=== PATIENT | male | born 1965 | race Caucasian/White ===

== ENCOUNTER 2022-12-06 09:00 | Emergency (ER) | payer BC ==
[2022-12-06] VITALS (8 sets, daily range): BP systolic 89–141; BP diastolic 71–103
[~2022-12-06] VITALS: Ht 193 cm; Wt 97.0 kg
[2022-12-06 09:47] LABS: BASO% 0.8 % (0-3); HEMATOCRIT 49.1 % (39.0-50.0); HEMOGLOBIN 16.2 g/dl (14.0-18.0); IMMATURE GRANULOCYTES 0.2 % (0.0-5.0); LYMPH% 29.2 % (15-41); MEAN CELL VOLUME 91.4 fL CALC (80.0-100.0); MEAN CORPUSCULAR HGB 30.2 pG CALC (26.0-32.0); MONO% 7.2 % (2-13); NEUT# 5.94 thou/uL (1.82-7.42); NEUT% 61.6 % (42-76); RED BLOOD COUNT 5.37 mill/uL (4.70-6.10); RED CELL DISTRI WIDTH 12.5 % (11.5-15.5)
[2022-12-06 11:13] LABS: URINE BLOOD DIPSTICK LARGE (NEGATIVE); URINE COLOR YELLOW; URINE GLUCOSE - DIPSTICK NEGATIVE (NEGATIVE); URINE KETONE TRACE mg/dL (NEGATIVE); URINE LEUK ESTERASE NEGATIVE (NEGATIVE); URINE PH 5.5 (4.5-8.0); URINE PROTEIN - DIPSTICK TRACE mg/dL (NEG-TRACE); URINE SPECIFIC GRAVITY >=1.030; URINE UROBILINOGEN - DIPSTICK 0.2 E.U./dL (0.2)
[2022-12-06 11:18] LABS: URINE BILIRUBIN - DIPSTICK SEE COMMNET (NEGATIVE); URINE NITRITE - DIPSTICK NEGATIVE (Negative)
[2022-12-06] MEDS ORDERED: TAMSULOSIN0.4 MG PO (11:44)
[2022-12-06] MEDS ORDERED: TRAMADOL HYDROC50 M1 PO (11:44)
== END 2022-12-06 12:02 | disposition home or self-care (01) | DRG 694 ==
LOC: ED 09:00
PROVIDERS: Family Medicine
DX: N13.2 Hydronephrosis with renal and ureteral calculous obstruction (principal); F17.220 Nicotine dependence, chewing tobacco, uncomplicated; Z87.442 Personal history of urinary calculi

== ENCOUNTER 2022-12-10 09:28 | Emergency (ER) | payer BC ==
[~2022-12-10] VITALS: Ht 193 cm; Wt 97.0 kg
[2022-12-10] VITALS (7 sets, daily range): BP systolic 130–147; BP diastolic 76–90
[~2022-12-10 09:28] MED LIST: TAMSULOSIN0.4 MG PO; TRAMADOL HYDROC50 M1 PO
[2022-12-10 09:58] LABS: BASO% 0.4 % (0-3); EOS% 0.9 % (0-8); HEMATOCRIT 49.1 % (39.0-50.0); HEMOGLOBIN 16.4 g/dl (14.0-18.0); IMMATURE GRANULOCYTES 0.3 % (0.0-5.0); LYMPH% 17.1 % (15-41); MEAN CELL VOLUME 90.8 fL CALC (80.0-100.0); MEAN CORPUSCULAR HGB 30.3 pG CALC (26.0-32.0); MEAN CORPUSCULAR HGB CONC 33.4 g/dL CAL (32.0-36.0); MONO% 7.8 % (2-13); NEUT# 9.19 thou/uL (1.82-7.42); NEUT% 73.5 % (42-76); RED BLOOD COUNT 5.41 mill/uL (4.70-6.10); RED CELL DISTRI WIDTH 12.3 % (11.5-15.5)
[2022-12-10 10:15] LABS: ALBUMIN 4.6 g/dL (3.2-5.0); ALKALINE PHOSPHATASE 80 u/l (38-126); ANION GAP 11 (6-22 (CALC)); BUN 14 mg/dL (9-20); BUN/CREATININE RATIO 11 (12-20 (CALC)); CARBON DIOXIDE 30 mmol/l (22-30); CHLORIDE 100 mmol/l (95-108); CREATININE 1.3 mg/dL (0.7-1.3); GFR FOR AFR.AMER. > 60 ML/MIN (>=60 (CALC)); GFR OTHER RACES 57 ML/MIN (>=60 (CALC)); POTASSIUM 3.8 mmol/l (3.5-5.1); SGOT/AST 31 u/l (17-59); SODIUM 138 mmol/l (137-146)
[2022-12-10] MEDS ORDERED: TRAMADOL HYDROC50 M1 PO (10:36)
== END 2022-12-10 11:11 | disposition home or self-care (01) | DRG 694 ==
LOC: ED 09:28
PROVIDERS: Family Medicine
DX: N13.2 Hydronephrosis with renal and ureteral calculous obstruction (principal); F17.220 Nicotine dependence, chewing tobacco, uncomplicated; Z87.442 Personal history of urinary calculi